=== PATIENT | female | born 1995 | race Caucasian/White ===

== ENCOUNTER 2022-01-29 05:28 | Emergency (ER) | payer OTHER, SELFPAY ==
[2022-01-29 06:30] LABS: Bilirubin Neg (Negative); Blood, Urine 50 (Negative); Clarity Clear (Clear); Glucose, Urine (Dipstick) Normal (Negative); Ketone, Urine Negative (Negative); Leukocyte 25 (Negative); Nitrite Negative (Negative); Protein, Urine (Dipstick) Negative (Neg-Trace); Urobilinogen Normal mg/dL (Less than 2)
[2022-01-29 06:43] LABS: Bacteria/HPF 2+ HPF (None Seen); RBC/HPF 0-3 HPF (0-3); Squamous Epithelial 0-3 HPF (0-3); WBC/HPF 0-3 HPF (0-3)
[2022-01-29 06:51] LABS: #Monocytes 0.6 10x3/uL (0.0-1.1); #Neutrophils 6.5 10x3/uL (1.5-8.4); %Basophils 0.5 % (0.0-2.0); %Eosinophils 0.5 % (0.0-6.0); %Lymphocytes 15.4 % (18.0-47.0); %Monocytes 6.8 % (0.0-10.0); %Neutrophils 76.4 % (40.0-75.0); Hemoglobin 13.2 g/dL (12.0-15.5); Mean Corpuscular HGB CONC 35.1 g/dL (32.0-36.0); Mean Platelet Volume 10.9 fl (7.4-10.4); Platelet Count 168 10x3/uL (150-450); RBC Distribution Width 12.3 % (11.5-14.5); Red Blood Cell (RBC) Count 4.13 10x6/uL (3.90-5.03); White Blood Cell (WBC) Count 8.5 10x3/uL (3.5-10.5)
== END 2022-01-29 08:45 | disposition home or self-care (01) ==
LOC: CSHERS 05:28
DX: O20.9 Hemorrhage in early pregnancy, unspecified (principal); O99.891 Other specified diseases and conditions complicating pregnancy; R82.71 Bacteriuria; Z3A.15 15 weeks gestation of pregnancy
CPT/HCPCS: 76815; 81003; 81015; 85025; 86900; 86901; 90384; 96372; 99284

== ENCOUNTER 2022-04-26 10:54 | Day surgery (SDC) | payer OTHER | END 2022-04-26 11:50 | disposition home or self-care (01) | LOC: CSHSDC/OP 10:54 | PROVIDERS: ATTEND Obstetrics & Gynecology | DX: O36.0120 Maternal care for anti-D [Rh] antibodies, second trimester, not applicable or unspecified (principal); Z67.41 Type O blood, Rh negative; Z3A.27 27 weeks gestation of pregnancy | CPT/HCPCS: 90384; 96372 ==

== ENCOUNTER 2022-05-08 11:18 | Emergency (ER) | payer OTHER ==
[2022-05-08 12:00] LABS: #Eosinphils 0.1 10x3/uL (0.0-0.5); #Monocytes 0.9 10x3/uL (0.0-1.1); #Neutrophils 9.2 10x3/uL (1.5-8.4); %Basophils 0.2 % (0.0-2.0); %Eosinophils 0.8 % (0.0-6.0); %Lymphocytes 12.8 % (18.0-47.0); %Monocytes 7.7 % (0.0-10.0); %Neutrophils 77.6 % (40.0-75.0); Hemoglobin 12.2 g/dL (12.0-15.5); Mean Corpuscular HGB CONC 34.2 g/dL (32.0-36.0); Mean Corpuscular Hemoglobin 32.4 pg (27.0-33.0); Mean Corpuscular Volume 94.9 fl (81.6-98.3); Mean Platelet Volume 11.2 fl (7.4-10.4); Platelet Count 184 10x3/uL (150-450); RBC Distribution Width 12.5 % (11.5-14.5); Red Blood Cell (RBC) Count 3.76 10x6/uL (3.90-5.03); White Blood Cell (WBC) Count 11.9 10x3/uL (3.5-10.5)
[2022-05-08 12:14] LABS: ALT (SGPT) 9 U/L (8-55); AST (SGOT) 13 U/L (5-34); Alkaline Phosphatase 72 U/L (40-110); Anion Gap 12 mmol/L (10-20); BUN (Urea Nitrogen) 7 mg/dL (7.0-18.7); Bilirubin, Total 0.1 mg/dL (0.2-1.2); Calc. Creatinine Clearance 0 mL/min (70-130); Calcium 8.4 mg/dL (7.8-10.44); Carbon Dioxide 21 mmol/L (22-29); Chloride 106 mmol/L (98-107); Estimated GFR 130; Globulin 3.1 g/dL (2.4-3.5); Glucose 123 mg/dL (70-105); Potassium 3.7 mmol/L (3.5-5.1); Protein, Total 6.1 g/dL (6.0-8.3); Sodium 135 mmol/L (136-145)
[2022-05-08 12:24] LABS: Bilirubin Neg (Negative); Blood, Urine Negative (Negative); Clarity Clear (Clear); Glucose, Urine (Dipstick) Normal (Negative); Ketone, Urine Negative (Negative); Leukocyte 25 (Negative); Nitrite Negative (Negative); Protein, Urine (Dipstick) Negative (Neg-Trace); Specific Gravity, Urine 1.005 (1.005-1.030); Urobilinogen Normal mg/dL (Less than 2)
[2022-05-08 12:31] LABS: Bacteria/HPF Rare-Few HPF (None Seen); RBC/HPF 0-3 HPF (0-3)
== END 2022-05-08 13:50 | disposition home or self-care (01) ==
LOC: CSHERS 11:18
DX: O23.43 Unspecified infection of urinary tract in pregnancy, third trimester (principal); O99.891 Other specified diseases and conditions complicating pregnancy; M25.571 Pain in right ankle and joints of right foot; R79.89 Other specified abnormal findings of blood chemistry; Z3A.29 29 weeks gestation of pregnancy
CPT/HCPCS: 36415; 76856; 80053; 81003; 81015; 85025; 85379; 86900; 86901; 87086; 93976

== ENCOUNTER 2022-05-23 08:18 | Emergency (ER) | payer OTHER | END 2022-05-23 08:56 | disposition home or self-care (01) | LOC: CSHERS 08:18 | DX: O99.891 Other specified diseases and conditions complicating pregnancy (principal); M79.604 Pain in right leg; O99.413 Diseases of the circulatory system complicating pregnancy, third trimester; Z3A.32 32 weeks gestation of pregnancy | CPT/HCPCS: 99281 ==